=== PATIENT | male | born 1950 | race Caucasian/White ===

== ENCOUNTER 2019-07-05 07:36 | Day surgery (SDC) | payer MEDICARE, OTHER ==
[~2019-07-05] VITALS: Ht 182.9 cm; Wt 95.2 kg
[~2019-07-05 07:36] MED LIST: ACID REDUCER 1150 MG; ATEN50; Aspir 8181 MG; EPIPEN 2-P0.3 MG/0.3; LEVSOD50; Lipitor80 MG; PANT40
--- NOTE | 2019-07-05 09:54 | NUR ---
07/05/19 0954 Jeremie Lepe REPORT GIVEN TO BOBBY TODD AT 0954.
== END 2019-07-05 10:41 | disposition home or self-care (01) ==
LOC: ORSCSDS 07:36
PROVIDERS: Internal Medicine Gastroenterology
PROC: 0DB58ZX Excision of Esophagus, Via Natural or Artificial Opening Endoscopic, Diagnostic (ICD-10-PCS; principal; 2019-07-05 09:45)
PROC: 0DBN8ZX Excision of Sigmoid Colon, Via Natural or Artificial Opening Endoscopic, Diagnostic (ICD-10-PCS; principal; 2019-07-05 09:45)
DX: K51.90 Ulcerative colitis, unspecified, without complications (principal); K22.70 Barrett's esophagus without dysplasia; K21.9 Gastro-esophageal reflux disease without esophagitis; K44.9 Diaphragmatic hernia without obstruction or gangrene; K64.1 Second degree hemorrhoids; I10 Essential (primary) hypertension; J45.909 Unspecified asthma, uncomplicated; Z86.718 Personal history of other venous thrombosis and embolism; E03.9 Hypothyroidism, unspecified; E78.00 Pure hypercholesterolemia, unspecified; I25.89 Other forms of chronic ischemic heart disease; Z79.899 Other long term (current) drug therapy; Z79.82 Long term (current) use of aspirin
CPT/HCPCS: 88305; J2704; J7120